=== PATIENT | male | born 1930 | race Caucasian/White ===

== ENCOUNTER 2017-11-24 15:27 | Observation (INO) | payer MEDICARE, BC ==
[2017-11-24] VITALS (9 sets, daily range): BP systolic 132–165; BP diastolic 63–76; PULSE 52–61; RESP 16–24; TEMP 97.2–97.7; O2SAT 96–99
[~2017-11-24] VITALS: Ht 167.6 cm; Wt 83.2 kg
[~2017-11-24 15:27] MED LIST: METO-309 PO; SIMV5TAB3 PO; WARF4TAB51 PO; WARF4TAB52 PO
[2017-11-24] MEDS ORDERED: SODIUM CHLORID 0.9% 500 ML INJ 500 ML IV ONE (15:45)
[2017-11-24] MEDS ORDERED: SIMV40TA PO (15:46)
[2017-11-24] MEDS ORDERED: TEMA7.5C PO (15:46)
[2017-11-24] MEDS ORDERED: ASPI81CH6 CHEW (15:46)
[2017-11-24] MEDS ORDERED: METO1TAB9 PO (15:46)
[2017-11-24] MEDS ORDERED: WARF4TAB52 PO (15:46)
--- NOTE | 2017-11-24 16:03 | PD ---
HPI Chief Complaint: Syncope/Near-Syncope Time Seen by Provider: 15:31 Travel History International Travel<30 days: No Contact w/Intl Traveler<30days: No Traveled to known affect area: No History of Present Illness HPI 86-year-old male that presents to the ED for evaluation of dizziness and syncope. Patient apparently: Ambulance because he was having dizziness. Per patient he feels like the room spinning. Per patient he never had this before where he does tell me that he has a history of blood clot to his right eye for which she lost some vision and some of his vision is back. Patient is concerned because now for the past week his been having loss of hearing in his right ear which is not usual for him. He denies any injuries. Apparently symptoms of dizziness around 12:00 this afternoon. Patient does have a history of cardiac disease with 2 stents in his heart as well as previous pacemaker that was removed secondary to infection. Per patient he does not have a pacemaker anymore. He denies any trauma other than a week ago when he fell and hit his hand. He does take Coumadin for atrial fibrillation. He denies any chest pain or shortness of breath. No dominant no pain. Per patient he feels nauseous and has vomited twice. Per ambulance patient had episode of asystole that lasted less than 5 seconds when he had the syncopal episode. Syncopal episode lasted less than 10 seconds and he came back today with no symptoms other than amnesia from the episode. Patient himself states that he still feels very dizzy and nauseous. Has not vomited here. No abdominal pain. No other medical issues at this time. patient follows up with Dr Kim for cardiology. [facility] Past Medical History Hx Anticoagulant Therapy: Yes (coumadin) Heart Rhythm Problems: Yes (afib) High Cholesterol: Yes Diminished Hearing: No Myocardial Infarction: Yes Influenza Vaccination: Yes Past Surgical History Cardiac Surgery: Yes (stents) Cholecystectomy: Yes Social History Alcohol Use: Yes (WINE DAILY) Tobacco Use: No Substance Use: No Allergies-Medications (Allergen,Severity, Reaction): Coded Allergies: Sulfa (Sulfonamide Antibiotics) (Unverified Allergy, Severe, 11/24/17) levofloxacin (Unverified Allergy, Severe, 11/24/17) propoxyphene (Unverified Allergy, Severe, 11/24/17) Reported Meds & Prescriptions Reported Meds & Active Scripts Active Reported Temazepam 7.5 Mg Cap 7.5 Mg PO HS PRN Aspirin Low Dose (Aspirin) 81 Mg Chew 81 Mg CHEW DAILY Warfarin 1 Mg Tab 1 Mg PO Simvastatin 40 Mg Tab 40 Mg PO HS Metoprolol Succinate ER 24 HR (Metoprolol Succinate) 50 Mg Tab 50 Mg PO DAILY Lopressor (Metoprolol Tartrate) 50 Mg Tab 25 Mg PO BID Warfarin 1 Mg Tab 2 Mg PO Warfarin 2 Mg Tab 2 Mg PO DIRECTED Simvastatin 5 Mg Tab 5 Mg PO DAILY Review of Systems Except as stated in HPI: all other systems reviewed are Neg Physical Exam Narrative GENERAL: SKIN: Warm and dry. HEAD: Atraumatic. Normocephalic. EYES: Pupils equal and round. No scleral icterus. No injection or drainage. ENT: No nasal bleeding or discharge. Mucous membranes pink and moist. Tongue is midline. No uvula deviation. Left TM is clear with no sign of infection or perforation. Right TM cannot be visualized secondary to significant cerumen impaction to the right ear. NECK: Trachea midline. No JVD. CARDIOVASCULAR: Regular rate and rhythm. No murmurs, S3, S4. RESPIRATORY: No accessory muscle use. Clear to auscultation. Breath sounds equal bilaterally. GASTROINTESTINAL: Abdomen soft, non-tender, nondistended. Hepatic and splenic margins not palpable. MUSCULOSKELETAL: Extremities without clubbing, cyanosis, or edema. No obvious deformities. Full range of motion of the upper and lower extremities bilaterally. 2+ pulses bilaterally. NEUROLOGICAL: Awake and alert. No obvious cranial nerve deficits. Motor grossly within normal limits. Five out of 5 muscle strength in the arms and legs. Normal speech. PSYCHIATRIC: Appropriate mood and affect; insight and judgment normal. Data Data Last Documented VS Vital Signs Date Time Temp Pulse Resp B/P (MAP) Pulse Ox O2 Delivery O2 Flow Rate FiO2 11/24/17 15:59 96 Room Air 11/24/17 15:56 54 16 11/24/17 15:36 97.7 Orders Orders Electrocardiogram (11/24/17 15:39) Complete Blood Count With Diff (11/24/17 15:39) Comprehensive Metabolic Panel (11/24/17 15:39) Ckmb (Isoenzyme) Profile (11/24/17 15:39) Troponin I (11/24/17 15:39) Prothrombin Time / Inr (Pt) (11/24/17 15:39) Act Partial Throm Time (Ptt) (11/24/17 15:39) Lipase (11/24/17 15:39) Urinalysis - C+S If Indicated (11/24/17 15:39) Magnesium (Mg) (11/24/17 15:39) Thyroid Stimulating Hormone (11/24/17 15:39) Chest, Single Ap (11/24/17 15:39) Ct Brain W/O Iv Contrast(Rout) (11/24/17 15:39) Iv Access Insert/Monitor (11/24/17 15:39) Ecg Monitoring (11/24/17 15:39) Oximetry (11/24/17 15:39) Ear Irrigation (11/24/17 15:39) Sodium Chlorid 0.9% 500 Ml Inj (Ns 500 M (11/24/17 15:45) B-Type Natriuretic Peptide (11/24/17 15:39) Orthostatic Vital Signs (11/24/17 15:39) Place In Observation (11/24/17 ) Code Status (11/24/17 17:53) Vital Signs (Adult) Q4H (11/24/17 17:53) Activity Oob Ad Heydi (11/24/17 17:53) Bedside Glucose HERMES.CSUGAR (11/24/17 17:53) Media Relations Specialist / Telemetry .CONTINUOUS (11/24/17 17:53) Intake + Output HERMES.QSHIFT (11/24/17 17:53) Notify Dr: Other (11/24/17 17:53) Diet Heart Healthy (11/24/17 Dinner) Sodium Chlor 0.9% 1000 Ml Inj (Ns 1000 M (11/24/17 17:53) Sodium Chloride 0.9% Flush (Ns Flush) (11/24/17 18:00) Sodium Chloride 0.9% Flush (Ns Flush) (11/24/17 21:00) Acetaminophen (Tylenol) (11/24/17 18:00) Ondansetron Inj (Zofran Inj) (11/24/17 18:00) Basic Metabolic Panel (Bmp) (11/25/17 06:00) Complete Blood Count With Diff (11/25/17 06:00) Creatine Kinase (Cpk) (11/24/17 17:53) Creatine Kinase (Cpk) (11/24/17 23:53) Troponin I (11/24/17 17:53) Troponin I (11/24/17 23:53) Prothrombin Time / Inr (Pt) (11/25/17 06:00) Resp Oxygen Ernesto C Titrat 1-4 L (11/24/17 ) Pt Request For Service (11/24/17 17:53) Case Management Consult (11/24/17 17:53) Naloxone Inj (Narcan Inj) (11/24/17 18:00) Sennosides (Senokot) (11/24/17 18:00) Bisacodyl Supp (Dulcolax Supp) (11/24/17 18:00) Lactulose Liq (Lactulose Liq) (11/24/17 18:00) Admit Order (Ed Use Only) (11/24/17 17:57) Labs Laboratory Tests Test 11/24/17 15:50 White Blood Count 6.9 TH/MM3 Red Blood Count 3.77 MIL/MM3 Hemoglobin 11.5 GM/DL Hematocrit 34.3 % Mean Corpuscular Volume 90.8 FL Mean Corpuscular Hemoglobin 30.5 PG Mean Corpuscular Hemoglobin Concent 33.6 % Red Cell Distribution Width 14.9 % Platelet Count 354 TH/MM3 Mean Platelet Volume 7.6 FL Neutrophils (%) (Auto) 74.1 % Lymphocytes (%) (Auto) 16.0 % Monocytes (%) (Auto) 7.3 % Eosinophils (%) (Auto) 1.9 % Basophils (%) (Auto) 0.7 % Neutrophils # (Auto) 5.1 TH/MM3 Lymphocytes # (Auto) 1.1 TH/MM3 Monocytes # (Auto) 0.5 TH/MM3 Eosinophils # (Auto) 0.1 TH/MM3 Basophils # (Auto) 0.0 TH/MM3 CBC Comment DIFF FINAL Differential Comment Prothrombin Time 19.1 SEC Prothromb Time International Ratio 1.9 RATIO Activated Partial Thromboplast Time 33.1 SEC Blood Urea Nitrogen 18 MG/DL Creatinine 0.69 MG/DL Random Glucose 150 MG/DL Total Protein 6.6 GM/DL Albumin 3.5 GM/DL Calcium Level 8.4 MG/DL Magnesium Level 2.2 MG/DL Alkaline Phosphatase 88 U/L Aspartate Amino Transf (AST/SGOT) 20 U/L Alanine Aminotransferase (ALT/SGPT) 17 U/L Total Bilirubin 0.3 MG/DL Sodium Level 138 MEQ/L Potassium Level 4.1 MEQ/L Chloride Level 107 MEQ/L Carbon Dioxide Level 22.4 MEQ/L Anion Gap 9 MEQ/L Estimat Glomerular Filtration Rate 109 ML/MIN Total Creatine Kinase 87 U/L Troponin I LESS THAN 0.02 NG/ML B-Type Natriuretic Peptide 125 PG/ML Lipase 72 U/L Thyroid Stimulating Hormone 3rd Gen 2.780 uIU/ML MDM Medical Decision Making Medical Screen Exam Complete: Yes Emergency Medical Condition: Yes Medical Record Reviewed: Yes Interpretation(s) CBC & BMP Diagram 11/24/17 15:50 Total Protein 6.6, Albumin 3.5, Calcium Level 8.4 L, Magnesium Level 2.2, Alkaline Phosphatase 88, Aspartate Amino Transf (AST/SGOT) 20, Alanine Aminotransferase (ALT/SGPT) 17, Total Bilirubin 0.[address] 11/24/171538 Signed Impressions: Service Date/Time: Friday, November 24, 2017 17:07 - CONCLUSION: 1. No acute findings. 2. Chronic diffuse ischemic white matter hypodensities, unchanged from 2016. Caesar Perkins MD Chest X-Ray 11/24/171538 Signed Impressions: Service Date/Time: Friday, November 24, 2017 16:00 - CONCLUSION: 1. 4 mm nodule lateral left lung. 2. No focal infiltrates and no evidence of pneumothorax. The Caesar Perkins MD Troponin and CK-MB negative. EKG shows sinus bradycardia otherwise unremarkable. No sign of ischemia. Read by me and attending. Coags within normal limits Differential Diagnosis TIA versus CVA versus head injury versus dizziness versus vertigo versus a systole versus arrhythmia versus ACS versus syncope Narrative Course 86-year-old male that presents to the ED for evaluation of syncope and dizziness. Patient was properly examined and was found to have signs and symptoms which appear to be very concerning for cardiac syncope as well as possible cerumen impaction causing the hearing loss and possibly the vertigo. Also CVA in the differential. Labs and imaging ordered. Patient was started on IV fluids. Labs and imaging showed no sign of acute disease. Otherwise unremarkable at this time. I was able to review the records from the ambulance and patient did had a systole for about 5-10 seconds when he had the syncopal episode. This is concerning. Patient has been in sinus bradycardia here with no sign of acute disease. Recommendation is for admission for further evaluation of possible cardiac syncope. Patient agrees with this plan. Hospitalists was contacted and Dr Sevilla agrees to admission. Diagnosis Primary Impression: Syncope Qualified Codes: R55 - Syncope and collapse Additional Impressions: Dizziness Arrhythmia Qualified Codes: I49.9 - Cardiac arrhythmia, unspecified Impacted cerumen of right ear Admitting Information Admitting Physician Requests: Miguel Whitney Nov 24, 2017 16:02
--- NOTE | 2017-11-24 16:11 | RADRPT ---
EXAM DATE/TIME: 11/24/2017 16:00 [facility] COMPARISON: No previous studies available for comparison. INDICATIONS : Shortness of breath and syncopal episode today. MEDICAL HISTORY : Cardiovascular disease. SURGICAL HISTORY : None. ENCOUNTER: Initial ACUITY: 1 day PAIN SCORE: 0/10 LOCATION: Bilateral chest FINDINGS: Lungs are symmetrically aerated. There is a 4 mm nodular density in the lateral left midlung. Both hemidiaphragms are fairly well delineated. The heart is upper limits normal is size for AP technique . Crumpton screws in the right proximal humerus. Moderate tortuosity thoracic aortic arch. CONCLUSION: 1. 4 mm nodule lateral left lung. 2. No focal infiltrates and no evidence of pneumothorax. The Caesar Perkins MD on November 24, 2017 at 16:06 Board Certified Radiologist. This report was verified electronically.
[2017-11-24 16:20] LABS: AUTOMATED NEUTROPHIL # 5.1 TH/MM3 (1.8-7.7); BASOPHIL % 0.7 % (0.0-2.0); EOSINOPHIL # 0.1 TH/MM3 (0-0.4); EOSINOPHIL % 1.9 % (0.0-4.0); HEMATOCRIT 34.3 % (39.0-51.0); HEMOGLOBIN 11.5 GM/DL (13.0-17.0); LYMPHOCYTE # 1.1 TH/MM3 (1.0-4.8); MEAN CELL VOLUME 90.8 FL (80.0-100.0); MEAN CORPUSCULAR HEMOGLOBIN 30.5 PG (27.0-34.0); MEAN CORPUSCULAR HGB CONC 33.6 % (32.0-36.0); MEAN PLATELET VOLUME 7.6 FL (7.0-11.0); MONO % 7.3 % (0.0-8.0); MONOCYTE # 0.5 TH/MM3 (0-0.9); NEUT % 74.1 % (16.0-70.0); PLATELET COUNT 354 TH/MM3 (150-450); RED BLOOD COUNT 3.77 MIL/MM3 (4.50-5.90); RED CELL DISTRIBUTION WIDTH 14.9 % (11.6-17.2); WHITE BLOOD COUNT 6.9 TH/MM3 (4.0-11.0)
[2017-11-24 16:28] LABS: INTERNATIONAL NORMALIZED RATIO 1.9 RATIO; PROTHROMBIN TIME - PATIENT 19.1 SEC (9.8-11.6)
[2017-11-24 16:41] LABS: ALBUMIN 3.5 GM/DL (3.4-5.0); ALT (GPT) 17 U/L (12-78); AST (GOT) 20 U/L (15-37); BICARBONATE 22.4 MEQ/L (21.0-32.0); BLOOD UREA NITROGEN 18 MG/DL (7-18); CALCIUM 8.4 MG/DL (8.5-10.1); CHLORIDE 107 MEQ/L (98-107); CREATININE 0.69 MG/DL (0.60-1.30); GLOMERULAR FILTRATION RATE 109 ML/MIN (>89); GLUCOSE,RANDOM 150 MG/DL (74-106); MAGNESIUM 2.2 MG/DL (1.5-2.5); SODIUM (NA) 138 MEQ/L (136-145)
[2017-11-24 16:51] LABS: ALKALINE PHOSPHATASE 88 U/L (45-117); TOTAL BILIRUBIN ADULT 0.3 MG/DL (0.2-1.0); TOTAL PROTEIN 6.6 GM/DL (6.4-8.2); TROPONIN I LESS THAN 0.02 NG/ML (0.02-0.05)
--- NOTE | 2017-11-24 17:23 | RADRPT ---
EXAM DATE/TIME: 11/24/2017 17:07 [facility] COMPARISON: CT BRAIN W/O CONTRAST, August 23, 2016, 20:37. INDICATIONS : Head pain due to syncope. RADIATION DOSE: 43.18 CTDIvol (mGy) MEDICAL HISTORY : Cardiovascular disease. SURGICAL HISTORY : Cholecystectomy. ENCOUNTER: Initial ACUITY: 1 day PAIN SCALE: 7/10 LOCATION: Bilateral cranial TECHNIQUE: Multiple contiguous axial images were obtained of the head. Using automated exposure control and adj ustment of the mA and/or kV according to patient size, radiation dose was kept as low as reasonably a chievable to obtain optimal diagnostic quality images. DICOM format image data is available electro nically for review and comparison. FINDINGS: CEREBRUM: Chronic white matter ischemic changes with diffuse hypodensity throughout the supratentorial white ma tter and nathalia the ventricles; findings are similar to prior CT in 2016. No evidence of acute blood p roducts, cerebral edema, extra-axial fluid or blood, or acute infarction. POSTERIOR FOSSA: The cerebellum and brainstem are intact. The 4th ventricle is midline. The cerebellopontine angle i s unremarkable. EXTRACRANIAL: The visualized portion of the orbits is intact. SKULL: The calvaria is intact. No evidence of skull fracture. CONCLUSION: 1. No acute findings. 2. Chronic diffuse ischemic white matter hypodensities, unchanged from 2016. Caesar Perkins MD on November 24, 2017 at 17:17 Board Certified Radiologist. This report was verified electronically.
--- NOTE | 2017-11-24 17:57 | HHI.HP ---
HPI Service [facility] Primary Care Physician Aki Caruso DO Admission Diagnosis Diagnoses: Chief Complaint: Near Syncope/dizziness Travel History International Travel<30 Days: No Contact w/Intl Traveler <30 Da: No Traveled to Known Affected Are: No History of Present Illness This is a pleasant 86 y/o male who came to ER with symptoms of dizziness and syncope, his room was spinning, Per patient he never had this before, has history of blood clot in his right eye wit vision loss, last week developed some hearing loss on his Right ear, He denies any injuries. Apparently symptoms of dizziness around 12:00 this afternoon. Patient does have a history of cardiac disease with 2 stents in his heart as well as previous pacemaker that was removed secondary to infection. Per patient he does not have a pacemaker anymore. He denies any trauma other than a week ago when he fell and hit his hand. He does take Coumadin for atrial fibrillation. He denies any chest pain or shortness of breath. No dominant no pain. Per patient he feels nauseous and has vomited twice. Per ambulance patient had episode of asystole that lasted less than 5 seconds when he had the syncopal episode. Syncopal episode lasted less than 10 seconds and he came back today with no symptoms other than amnesia from the episode. Patient himself states that he still feels very dizzy and nauseous. Has not vomited here. No abdominal pain. No other medical issues at this time. patient follows up with Dr Kim for cardiology. he is been seen in ER in the presence of his and Daughter, the patient is taking Metoprolol and has Bradycardia probable iatrogenic he is taking 50 mg daily or Metoprolol Succinate, he clear the situation he went to eat and when he stood up to go to the restroom he had Dizziness saw the room spinning, developed Nystagmus, had nausea and vomit. 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 Stroke history no focal deficit Hiatal hernia Past Surgical History PCI with Stent placement Cholecystectomy right knee surgery Tonsillectomy as a child Reported Medications Reported Meds & Active Scripts Active Reported Temazepam 7.5 Mg Cap 7.5 Mg PO HS PRN Aspirin Low Dose (Aspirin) 81 Mg Chew 81 Mg CHEW DAILY Warfarin 1 Mg Tab 1 Mg PO Simvastatin 40 Mg Tab 40 Mg PO HS Metoprolol Succinate ER 24 HR (Metoprolol Succinate) 50 Mg Tab 50 Mg PO DAILY Lopressor (Metoprolol Tartrate) 50 Mg Tab 25 Mg PO BID Warfarin 1 Mg Tab 2 Mg PO Warfarin 2 Mg Tab 2 Mg PO DIRECTED Simvastatin 5 Mg Tab 5 Mg PO DAILY Allergies: Coded Allergies: Sulfa (Sulfonamide Antibiotics) (Unverified Allergy, Severe, 11/24/17) levofloxacin (Unverified Allergy, Severe, 11/24/17) propoxyphene (Unverified Allergy, Severe, 11/24/17) Active Ordered Medications Current Medications Medications (Trade) Dose Ordered Sig/Sofía Route Start Time Stop Time Status Last Admin Sodium Chloride 1,000 ml @ 83 mls/hr Q12H3M IV 11/24/17 17:53 (NS Flush) 2 ml UNSCH PRN IV FLUSH 11/24/17 18:00 (NS Flush) 2 ml BID IV FLUSH 11/24/17 21:00 (Tylenol) 650 mg Q4H PRN PO 11/24/17 18:00 (Zofran Inj) 4 mg Q6H PRN IVP 11/24/17 18:00 (Narcan Inj) 0.4 mg UNSCH PRN IV PUSH 11/24/17 18:00 (Senokot) 17.2 mg Q12H PRN PO 11/24/17 18:00 (Dulcolax Supp) 10 mg DAILY PRN RECTAL 11/24/17 18:00 (Lactulose Liq) 30 ml DAILY PRN PO 11/24/17 18:00 Family History he is adopted Social History Alcohol abuse wine daily Lives with his Physical Exam Vital Signs Vital Signs Date Time Temp Pulse Resp B/P (MAP) Pulse Ox O2 Delivery O2 Flow Rate FiO2 11/24/17 15:59 96 Room Air 11/24/17 15:56 54 16 137/65 (89) 96 Room Air 11/24/17 15:50 55 165/72 (103) 55 148/70 (96) 57 151/72 (98) 11/24/17 15:36 97.7 57 20 132/69 (90) 96 Physical Exam GENERAL: This is a well-nourished, well-developed patient, in no apparent distress. SKIN: No rashes, ecchymoses or lesions. Cool and dry. HEAD: Atraumatic. Normocephalic. No temporal or scalp tenderness. EYES: Pupils equal round and reactive. Extraocular motions intact. No scleral icterus. No injection or drainage. ENT: Nose without bleeding, purulent drainage or septal hematoma. Throat without erythema, tonsillar hypertrophy or exudate. Uvula midline. Airway patent. NECK: Trachea midline. No JVD or lymphadenopathy. Supple, nontender, no meningeal signs. CARDIOVASCULAR: Regular rate and rhythm without murmurs, gallops, or rubs. RESPIRATORY: Clear to auscultation. Breath sounds equal bilaterally. No wheezes , rales, or rhonchi. GASTROINTESTINAL: Abdomen soft, non-tender, nondistended. No hepato-splenomegaly , or palpable masses. No guarding. MUSCULOSKELETAL: Extremities without clubbing, cyanosis, or edema. No joint tenderness, effusion, or edema noted. No calf tenderness. Negative Homans sign bilaterally. NEUROLOGICAL: Awake and alert. Cranial nerves II through XII intact. Motor and sensory grossly within normal limits. Five out of 5 muscle strength in all muscle groups. Normal speech. Laboratory Laboratory Tests Test 11/24/17 15:50 White Blood Count 6.9 Red Blood Count 3.77 Hemoglobin 11.5 Hematocrit 34.3 Mean Corpuscular Volume 90.8 Mean Corpuscular Hemoglobin 30.5 Mean Corpuscular Hemoglobin Concent 33.6 Red Cell Distribution Width 14.9 Platelet Count 354 Mean Platelet Volume 7.6 Neutrophils (%) (Auto) 74.1 Lymphocytes (%) (Auto) 16.0 Monocytes (%) (Auto) 7.3 Eosinophils (%) (Auto) 1.9 Basophils (%) (Auto) 0.7 Neutrophils # (Auto) 5.1 Lymphocytes # (Auto) 1.1 Monocytes # (Auto) 0.5 Eosinophils # (Auto) 0.1 Basophils # (Auto) 0.0 CBC Comment DIFF FINAL Differential Comment Prothrombin Time 19.1 Prothromb Time International Ratio 1.9 Activated Partial Thromboplast Time 33.1 Blood Urea Nitrogen 18 Creatinine 0.69 Random Glucose 150 Total Protein 6.6 Albumin 3.5 Calcium Level 8.4 Magnesium Level 2.2 Alkaline Phosphatase 88 Aspartate Amino Transf (AST/SGOT) 20 Alanine Aminotransferase (ALT/SGPT) 17 Total Bilirubin 0.3 Sodium Level 138 Potassium Level 4.1 Chloride Level 107 Carbon Dioxide Level 22.4 Anion Gap 9 Estimat Glomerular Filtration Rate 109 Total Creatine Kinase 87 Troponin I LESS THAN 0.02 B-Type Natriuretic Peptide 125 Lipase 72 Thyroid Stimulating Hormone 3rd Gen 2.780 Result Diagram: 11/24/17 1550 11/24/17 1550 Imaging Last Impressions Head CT 11/24/17 1539 Signed Impressions: Service Date/Time: Friday, November 24, 2017 17:07 - CONCLUSION: 1. No acute findings. 2. Chronic diffuse ischemic white matter hypodensities, unchanged from 2016. Caesar Perkins MD Chest X-Ray 11/24/17 1539 Signed Impressions: Service Date/Time: Friday, November 24, 2017 16:00 - CONCLUSION: 1. 4 mm nodule lateral left lung. 2. No focal infiltrates and no evidence of pneumothorax. The MD Martha Owusu VTE Risk Assessment Caprini VTE Risk Assessment: Mod/High Risk (score >= 2) Caprini Risk Assessment Model Point Value = 1 Point Value = 2 Point Value = 3 Point Value = 5 Age 41-60 Minor surgery BMI > 25 kg/m2 Swollen legs Varicose veins or History of unexplained or recurrent spontaneous Oral contraceptives or hormone replacement Sepsis (< 1 month) Serious lung disease, including pneumonia (< 1 month) Abnormal pulmonary function Acute myocardial infarction Congestive heart failure (< 1 month) History of inflammatory bowel disease Medical patient at bed rest Age 61-74 Arthroscopic surgery Major open surgery (> 45 min) Laparoscopic surgery (> 45 min) Malignancy Confined to bed (> 72 hours) Immobilizing plaster cast Central venous access Age >= 75 History of VTE Family history of VTE Factor V Leiden Prothrombin 28519A Lupus anticoagulant Anticardiolipin antibodies Elevated serum homocysteine Heparin-induced thrombocytopenia Other congenital or acquired thrombophilia Stroke (< 1 month) Elective arthroplasty Hip, pelvis, or leg fracture Acute spinal cord injury (< 1 month) Prophylaxis Regimen Total Risk Factor Score Risk Level Prophylaxis Regimen 0-1 Low Early ambulation 2 Moderate Order ONE of the following: *Sequential Compression Device (SCD) *Heparin 5000 units SQ BID 3-4 Higher Order ONE of the following medications: *Heparin 5000 units SQ TID *Enoxaparin/Lovenox 40 mg SQ daily (WT < 150 kg, CrCl > 30 mL/min) *Enoxaparin/Lovenox 30 mg SQ daily (WT < 150 kg, CrCl > 10-29 mL/min) *Enoxaparin/Lovenox 30 mg SQ BID (WT < 150 kg, CrCl > 30 mL/min) AND/OR *Sequential Compression Device (SCD) 5 or more Highest Order ONE of the following medications: *Heparin 5000 units SQ TID (Preferred with Epidurals) *Enoxaparin/Lovenox 40 mg SQ daily (WT < 150 kg, CrCl > 30 mL/min) *Enoxaparin/Lovenox 30 mg SQ daily (WT < 150 kg, CrCl > 10-29 mL/min) *Enoxaparin/Lovenox 30 mg SQ BID (WT < 150 kg, CrCl > 30 mL/min) AND *Sequential Compression Device (SCD) Assessment and Plan Assessment and Plan 1. Syncopal episode while on EMS, in a patient with CAD and PCI history, probable episode of asystole while on his way to ER. due to Bradycardia will place on hold his Beta mac and follow with his Primary coverage specialist rn Doctor Jose Kim, continue warfarin, his INR 1.9 consult pharmacy, Asked for Echocardiogram 2. Atrial Fibrillation with controlled rate, he is bradycardic will place on hold Beta mac, consulted Cardiology continue Warfarin 3. chronic anticoagulation with Coumadin INR 1.9 4. hyperlipidemia to continue Statin 5. WA by history 6. Right ear wax occlusion status post Ear Lavage done by Nurse, This may produce patient's vertigo 7. Hiatal hernia on Gastric protection. DVT prophylaxis with Warfarin INR 1.9 Follow Laboratory INR daily continue Warfarin Consult Cardiology Echocardiogram. Code Status Full Code. Discussed Condition With Miguel Faustin Physician Certification 2 Midnight Certification Type: Admission for Inpatient Services Order for Inpatient Services The services are ordered in accordance with Medicare regulations or non- Medicare payer requirements, as applicable. In the case of services not specified as inpatient-only, they are appropriately provided as inpatient services in accordance with the 2-midnight benchmark. Estimated LOS (days): 3 days is the estimated time the patient will need to remain in the hospital, assuming treatment plan goals are met and no additional complications. Post-Hospital Plan: Home Kris Marrero MD Nov 24, 2017 17:57
[2017-11-24] MEDS ORDERED: ACETAMINOPHEN 325 MG TAB PO PRN (18:00)
[2017-11-24] MEDS ORDERED: LACTULOSE SYRUP 20 GM/30 ML CUP PO PRN (18:00)
[2017-11-24] MEDS ORDERED: NALOXONE HCL 0.4 MG/ML AMP IV PUSH PRN (18:00)
[2017-11-24] MEDS ORDERED: ONDANSETRON HCL 4 MG/2 ML VIAL IVP PRN (18:00)
[2017-11-24] MEDS ORDERED: SODIUM CHLORIDE 0.9% FLUSH 10 ML FLUSH IV FLUSH PRN (18:00)
[2017-11-24] MEDS ORDERED: BISACODYL 10 MG SUPP RECTAL PRN (18:00)
[2017-11-24] MEDS ORDERED: SENNOSIDES 8.6 MG TAB PO PRN (18:00)
[2017-11-24] MEDS: SODIUM CHLOR 0.9% 1000 ML INJ 1,000 ML IV SCH (18:25)
[2017-11-24] MEDS: WARFARIN SOD 2 MG TAB PO SCH (18:51)
[2017-11-24 20:30] LABS: TROPONIN I LESS THAN 0.02 NG/ML (0.02-0.05)
[2017-11-24] MEDS: PRAVASTATIN SOD 80 MG TAB PO SCH (22:29)
[2017-11-24] MEDS: SODIUM CHLORIDE 0.9% FLUSH 10 ML FLUSH IV FLUSH SCH (22:30)
[2017-11-25] VITALS (9 sets, daily range): BP systolic 85–131; BP diastolic 50–72; PULSE 51–66; RESP 17–18; TEMP 97.3–98.1; O2SAT 95–98
[2017-11-25] MEDS: TEMAZEPAM 7.5 MG CAP PO PRN ×2 (02:45→22:29)
[2017-11-25 04:59] LABS: AUTOMATED NEUTROPHIL # 4.2 TH/MM3 (1.8-7.7); BASOPHIL % 0.5 % (0.0-2.0); EOSINOPHIL # 0.1 TH/MM3 (0-0.4); EOSINOPHIL % 2.1 % (0.0-4.0); HEMATOCRIT 31.4 % (39.0-51.0); HEMOGLOBIN 10.6 GM/DL (13.0-17.0); LYMPH % 18.3 % (9.0-44.0); LYMPHOCYTE # 1.1 TH/MM3 (1.0-4.8); MEAN CELL VOLUME 90.9 FL (80.0-100.0); MEAN CORPUSCULAR HEMOGLOBIN 30.6 PG (27.0-34.0); MEAN CORPUSCULAR HGB CONC 33.6 % (32.0-36.0); MEAN PLATELET VOLUME 7.3 FL (7.0-11.0); MONO % 10.8 % (0.0-8.0); MONOCYTE # 0.7 TH/MM3 (0-0.9); NEUT % 68.3 % (16.0-70.0); PLATELET COUNT 314 TH/MM3 (150-450); RED BLOOD COUNT 3.46 MIL/MM3 (4.50-5.90); RED CELL DISTRIBUTION WIDTH 15.1 % (11.6-17.2); WHITE BLOOD COUNT 6.1 TH/MM3 (4.0-11.0)
[2017-11-25 05:13] LABS: PROTHROMBIN TIME - PATIENT 20.2 SEC (9.8-11.6)
[2017-11-25 05:25] LABS: BICARBONATE 24.7 MEQ/L (21.0-32.0); CALCIUM 8.3 MG/DL (8.5-10.1); CREATININE 0.75 MG/DL (0.60-1.30)
[2017-11-25 05:28] LABS: TROPONIN I LESS THAN 0.02 NG/ML (0.02-0.05)
[2017-11-25] MEDS: SODIUM CHLOR 0.9% 1000 ML INJ 1,000 ML IV SCH ×2 (05:56→22:30)
[2017-11-25] MEDS: SODIUM CHLORIDE 0.9% FLUSH 10 ML FLUSH IV FLUSH SCH ×2 (08:39→21:00)
[2017-11-25] MEDS ORDERED: ASPIRIN 81 MG CHEW TAB CHEW SCH (09:00)
--- NOTE | 2017-11-25 14:42 | HHI.PR ---
Subjective Remarks Follow up for syncopal episode as well as vertigo like symptoms. Patient is currently doing well. No acute concerns. He has not had any further episodes of dizziness, lightheadedness, spinning sensation or syncope. No chest pain, SOB. Objective Vitals Vital Signs Date Time Temp Pulse Resp B/P (MAP) Pulse Ox O2 Delivery O2 Flow Rate FiO2 11/25/17 12:00 98.1 61 17 114/56 (75) 97 11/25/17 08:00 97.8 62 17 123/56 (78) 97 11/25/17 06:00 111/58 (75) 103/57 (72) 85/50 (62) 11/25/17 04:00 59 11/25/17 04:00 97.9 54 18 105/53 (70) 95 11/25/17 00:00 97.3 58 18 131/72 (91) 98 11/24/17 20:00 97.2 61 18 159/74 (102) 98 11/24/17 19:56 11/24/17 19:00 58 24 158/76 (103) 99 Nasal Cannula 2.00 11/24/17 18:30 54 22 147/63 (91) 99 Nasal Cannula 2.00 11/24/17 17:00 54 19 143/65 (91) 98 Nasal Cannula 2.00 11/24/17 16:30 52 22 150/72 (98) 97 Nasal Cannula 2.00 11/24/17 15:59 96 Room Air 11/24/17 15:56 54 16 137/65 (89) 96 Room Air 11/24/17 15:50 55 165/72 (103) 55 148/70 (96) 57 151/72 (98) 11/24/17 15:36 97.7 57 20 132/69 (90) 96 I/O 11/24/17 11/24/17 11/24/17 11/25/17 11/25/17 11/25/17 07:00 15:00 23:00 07:00 15:00 23:00 Intake Total 500 ml 711 ml Balance 500 ml 711 ml Intake IV Total 500 ml 711 ml # Voids 5 Result Diagram: 11/25/17 0430 11/25/17 0430 Imaging Last Impressions Head CT 11/24/17 3973 Signed Impressions: Service Date/Time: Friday, November 24, 2017 17:07 - CONCLUSION: 1. No acute findings. 2. Chronic diffuse ischemic white matter hypodensities, unchanged from 2016. Caesar Perkins MD Chest X-Ray 11/24/17 1539 Signed Impressions: Service Date/Time: Friday, November 24, 2017 16:00 - CONCLUSION: 1. 4 mm nodule lateral left lung. 2. No focal infiltrates and no evidence of pneumothorax. The Caesar Perkins MD Objective Remarks GENERAL: Alert, Oriented x 3, NAD. SKIN: Warm and dry. HEAD: Normocephalic. EYES: No scleral icterus. No injection or drainage. NECK: Supple, trachea midline. No JVD or lymphadenopathy. CARDIOVASCULAR: Regular rate and rhythm without murmurs, gallops, or rubs. RESPIRATORY: Breath sounds equal bilaterally. No accessory muscle use. GASTROINTESTINAL: Abdomen soft, non-tender, nondistended. MUSCULOSKELETAL: No cyanosis, or edema. BACK: Nontender without obvious deformity. No CVA tenderness. Procedures None. A/P Problem List: (1) Syncope ICD Code: R55 - Syncope and collapse Status: Acute (2) Atrial fibrillation ICD Code: I48.91 - Unspecified atrial fibrillation Assessment and Plan Mr. Stephenson is a pleasant 86 year old male with a history of CAD, Afib on Warfarin who presented to the ED due to syncopal episode at home. - Syncope - Transient sinus pause in the Ambulance - Atrial fibrillation - Patient's syncope maybe due to use of Metoprolol which he is on for Afib. - Syncope and sinus pause is concerning. - Dr. Nguyễn (Electrophysiology) evaluated patient, recommends pending. - Discussed with Dr. Nguyễn. Patient may need demand pacemaker - CAD - Hyperlipidemia - continue statin. Will discontinue Aspirin as there is evidence of acute coronary syndrome. - It may also be beneficial to switch Warfarin to Apixaban 5mg BID. Full code. Warfarin. Discussed with Dr. Nguyễn (EP). Problem Qualifiers (1) Syncope: Qualified Codes: R55 - Syncope and collapse Eliza Colmenares DO Nov 25, 2017 14:42
[2017-11-25] MEDS: WARFARIN SOD 2 MG TAB PO SCH (15:39)
--- NOTE | 2017-11-25 17:25 | EKG ---
Date Performed: 11/24/2017 Time Performed: 15:40:52 PTAGE: 86 years EKG: SINUS BRADYCARDIA BORDERLINE ECG INTERPRETATION BASED ON A DEFAULT AGE OF 40 YEARS PREVIOUS TRACING : 02/15/2012 10.51 Since the prior tracing, there has been no significan t change DOCTOR: Samson Roberts Interpretating Date/Time 11/25/2017 17:23:50
[2017-11-25] MEDS: PRAVASTATIN SOD 80 MG TAB PO SCH (22:29)
[2017-11-26] VITALS: PULSE 63
[2017-11-26 01:11] VITALS: BP 120/58; PULSE 62; RESP 18; TEMP 97.6; O2SAT 96
[2017-11-26] MEDS: SODIUM CHLOR 0.9% 1000 ML INJ 1,000 ML IV SCH (03:25)
[2017-11-26 05:31] VITALS: BP 148/71; PULSE 70; RESP 18; TEMP 98; O2SAT 95
--- NOTE | 2017-11-26 05:41 | MB ---
cc: ALEX KIM M.D., HANSCY M.D. DATE OF CONSULTATION 11/25/2017 REASON FOR CONSULTATION Syncopal episode. HISTORY OF PRESENT ILLNESS Mr. Stephenson is an 86-year-old gentleman with a history of high blood pressure, hyperlipidemia, atrial fibrillation on anticoagulation followed by Dr. Kim. 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 Apparently the gentleman takes two of his doses of metoprolol at the same time. He was trying to stand from a chair and felt dizzy. He called 9-1-1. During the transportation apparently there was some 5-second pause that was not available and I was consulted for evaluation and management. The chart was reviewed. The patient was evaluated. ALLERGIES SULFA. LEVOFLOXACIN. PROPOXYPHENE. SOCIAL HISTORY The patient drinks a glass of wine daily. FAMILY HISTORY Noncontributory to his current medical condition. MEDICATIONS 1. Temazepine. 2. Aspirin. 3. Coumadin. 4. Zocor. 5. Metoprolol. REVIEW OF SYSTEMS Currently he refers no chest pain, no dizziness, no fever. No syncope. PHYSICAL EXAMINATION GENERAL: Alert, fully oriented. VITAL SIGNS: Blood pressure on evaluation was 112/57, pulse 65, respiratory rate 18 LUNGS: Ventilated CARDIOVASCULAR: S1, S2, irregular. No gallop. No murmur. ABDOMEN: Obese. No mass, no bruit. EXTREMITIES: No edema. ELECTROCARDIOGRAM sinus rhythm with PACs. LABORATORY DATA Hemoglobin 10.6, white blood cell 6.1. Potassium is 3.8, creatinine 0.75. Troponin less than 0.02. BNP is 125. INR 2.0. ASSESSMENT AND RECOMMENDATIONS Mr. Olson is in sinus rhythm. Apparently he did take a double dose of his metoprolol because the forgot to take it the day before. He was having some dizziness. There was report of a 5-second pause during the transportation to the hospital but the patient was asymptomatic. The recording is not available. At this point my recommendation is to continue with current management, observation. If there is another syncopal episode, then further decision will be taken. At this point the gentleman can be discharged home if stable. Dr. Kim will be available in the morning. Chhaya Nguyễn MD HS/SSB /11:18 PM /5:28 AM
[2017-11-26 08:00] VITALS: BP 144/72; PULSE 67; RESP 22; TEMP 97.8; O2SAT 98
[2017-11-26] MEDS: SODIUM CHLORIDE 0.9% FLUSH 10 ML FLUSH IV FLUSH SCH (09:22)
[2017-11-26 09:24] LABS: INTERNATIONAL NORMALIZED RATIO 1.9 RATIO; PROTHROMBIN TIME - PATIENT 19.6 SEC (9.8-11.6)
[2017-11-26 10:06] VITALS: O2SAT 98
--- NOTE | 2017-11-26 10:08 | PD.CARD.PN ---
Subjective Subjective Remarks Feels fine - denies chest pain or dizziness. He tells me he forget his metoprolol so he took it Fri AM and then took it again Fri pm. Sunday had severe vertigo with multiple bouts of nausea and vomiting. Has felt fine since being in hospital. Objective Medications Current Medications Medications (Trade) Dose Ordered Sig/Sofía Route Start Time Stop Time Status Last Admin Sodium Chloride 1,000 ml @ 100 mls/hr Q10H IV 11/24/17 17:53 11/25/17 22:30 (NS Flush) 2 ml UNSCH PRN IV FLUSH 11/24/17 18:00 (NS Flush) 2 ml BID IV FLUSH 11/24/17 21:00 11/25/17 08:39 (Tylenol) 650 mg Q4H PRN PO 11/24/17 18:00 (Zofran Inj) 4 mg Q6H PRN IVP 11/24/17 18:00 (Narcan Inj) 0.4 mg UNSCH PRN IV PUSH 11/24/17 18:00 (Senokot) 17.2 mg Q12H PRN PO 11/24/17 18:00 (Dulcolax Supp) 10 mg DAILY PRN RECTAL 11/24/17 18:00 (Lactulose Liq) 30 ml DAILY PRN PO 11/24/17 18:00 (Restoril) 7.5 mg HS PRN PO 11/24/17 18:30 11/25/17 22:29 (Coumadin) 2 mg DAILY@1600 PO 11/24/17 18:51 11/25/17 15:39 (Pravachol) 80 mg HS PO 11/24/17 21:00 11/25/17 22:29 Pharmacy Profile Note 0 ml @ 0 mls/hr UNSCH OTHER 11/24/17 18:45 Vital Signs / I&O Vital Signs Date Time Temp Pulse Resp B/P (MAP) Pulse Ox O2 Delivery O2 Flow Rate FiO2 11/26/17 08:00 97.8 67 22 144/72 (96) 98 11/26/17 05:31 98.0 70 18 148/71 (96) 95 11/26/17 01:11 97.6 62 18 120/58 (78) 96 11/26/17 00:00 63 11/25/17 20:59 98 21 11/25/17 20:59 97.8 66 18 120/56 (77) 96 11/25/17 20:00 65 11/25/17 16:00 98.0 55 17 112/57 (75) 98 11/25/17 12:00 98.1 61 17 114/56 (75) 97 I/O 11/25/17 11/25/17 11/25/17 11/26/17 11/26/17 11/26/17 07:00 15:00 23:00 07:00 15:00 23:00 Intake Total 711 ml 960 ml 672 ml Balance 711 ml 960 ml 672 ml Intake Oral 960 ml IV Total 711 ml 672 ml # Voids 5 2 4 # Bowel Movements 2 Physical Exam Alert Chest Clear CV S1S2 RRR, 1/6 LYDIA Ext No CCE Tele: HR in 40's yest Laboratory Laboratory Tests Test 11/26/17 08:51 Prothrombin Time 19.6 SEC Prothromb Time International Ratio 1.9 RATIO Assessment and Plan Problem List: (1) Paroxysmal atrial fibrillation ICD Codes: I48.0 - Paroxysmal atrial fibrillation Plan: Only seen post-treadmill. No known clinical recurrences but has had prior TIA's so is on warfarin (2) Vertigo ICD Codes: R42 - Dizziness and giddiness Plan: resolved (3) CAD (coronary artery disease) ICD Codes: I25.10 - Atherosclerotic heart disease of [place] coronary artery without angina pectoris Plan: no angina (4) Sinus bradycardia ICD Codes: R00.1 - Bradycardia, unspecified Plan: Stay off metoprolol Assessment and Plan [place] to [place] home. Jose Kim MD Nov 26, 2017 10:08
--- NOTE | 2017-11-26 20:54 | HHI.PR ---
Subjective Remarks Follow up for syncopal episode as well as vertigo like symptoms. Patient is currently doing well. No further pause, syncope. Objective Vitals Vital Signs Date Time Temp Pulse Resp B/P (MAP) Pulse Ox O2 Delivery O2 Flow Rate FiO2 11/26/17 10:06 98 11/26/17 08:00 97.8 67 22 144/72 (96) 98 11/26/17 05:31 98.0 70 18 148/71 (96) 95 11/26/17 01:11 97.6 62 18 120/58 (78) 96 11/26/17 00:00 63 11/25/17 20:59 98 21 11/25/17 20:59 97.8 66 18 120/56 (77) 96 I/O 11/25/17 11/25/17 11/25/17 11/26/17 11/26/17 11/26/17 07:00 15:00 23:00 07:00 15:00 23:00 Intake Total 711 ml 960 ml 672 ml Balance 711 ml 960 ml 672 ml Intake Oral 960 ml IV Total 711 ml 672 ml # Voids 5 2 4 # Bowel Movements 2 Result Diagram: 11/25/17 0430 11/25/17 0430 Imaging Last Impressions Head CT 11/24/17 1539 Signed Impressions: Service Date/Time: Friday, November 24, 2017 17:07 - CONCLUSION: 1. No acute findings. 2. Chronic diffuse ischemic white matter hypodensities, unchanged from 2016. Caesar Perkins MD Chest X-Ray 11/24/17 1539 Signed Impressions: Service Date/Time: Friday, November 24, 2017 16:00 - CONCLUSION: 1. 4 mm nodule lateral left lung. 2. No focal infiltrates and no evidence of pneumothorax. The Caesar Perkins MD Objective Remarks GENERAL: Alert, Oriented x 3, NAD. SKIN: Warm and dry. HEAD: Normocephalic. EYES: No scleral icterus. No injection or drainage. NECK: Supple, trachea midline. No JVD or lymphadenopathy. CARDIOVASCULAR: Regular rate and rhythm without murmurs, gallops, or rubs. RESPIRATORY: Breath sounds equal bilaterally. No accessory muscle use. GASTROINTESTINAL: Abdomen soft, non-tender, nondistended. MUSCULOSKELETAL: No cyanosis, or edema. BACK: Nontender without obvious deformity. No CVA tenderness. Procedures None. A/P Problem List: (1) Syncope ICD Code: R55 - Syncope and collapse Status: Acute (2) Atrial fibrillation ICD Code: I48.91 - Unspecified atrial fibrillation Assessment and Plan Mr. Stephenson is a pleasant 86 year old male with a history of CAD, Afib on Warfarin who presented to the ED due to syncopal episode at home. - Syncope - Transient sinus pause in the Ambulance - Atrial fibrillation - Patient's syncope maybe due to use of Metoprolol which he is on for Afib. - Syncope and sinus pause is concerning. - Cardiology evaluated patient today again. Dr. Kim recommended stopping Metoprolol. - CAD - Hyperlipidemia - continue statin. Will discontinue Aspirin as there is no evidence of acute coronary syndrome. - Continue Warfarin for anti-coagulation. Full code. Warfarin. Discharge patient to home Condition on discharge: Improved Regular Diet as tolerated Ad Heydi activity Rx written: - D/C metoprolol Follow-up with primary care physician PRN and Cardiology within one week Problem Qualifiers (1) Syncope: Qualified Codes: R55 - Syncope and collapse Eliza Colmenares DO Nov 26, 2017 20:54
== END 2017-11-26 11:25 | disposition home or self-care (01) ==
LOC: NEPE 15:27 → INTOOBSV 17:58 → NEDA 17:58 → N05A 19:47
PROVIDERS: ADMIT Hospitalist; ATTEND Hospitalist
DX: R55 Syncope and collapse (principal); Z79.01 Long term (current) use of anticoagulants; I25.10 Atherosclerotic heart disease of native coronary artery without angina pectoris; R00.1 Bradycardia, unspecified; I48.0 Paroxysmal atrial fibrillation; E78.5 Hyperlipidemia, unspecified; I25.2 Old myocardial infarction; R42 Dizziness and giddiness; K44.9 Diaphragmatic hernia without obstruction or gangrene; Z79.899 Other long term (current) drug therapy; R11.2 Nausea with vomiting, unspecified; E78.00 Pure hypercholesterolemia, unspecified; H61.21 Impacted cerumen, right ear; R91.1 Solitary pulmonary nodule; Z86.73 Personal history of transient ischemic attack (TIA), and cerebral infarction without residual deficits; R06.02 Shortness of breath
CPT/HCPCS: 70450; 71045; 80048; 80053; 82550; 82948; 83690; 83735; 83880; 84443; 84484; 85025; 85610; 85730; 93005; 96360; 99285; G0378; J7030; J7040